=== PATIENT | male | born 1935 | race Caucasian/White ===

== ENCOUNTER 2017-03-29 18:41 | Inpatient (IN) | payer MEDICARE, OTHER ==
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
[2017-03-29 16:53] LABS: BASOPHILS 0.1 %; BASOPHILS ABSOLUTE 0.01 10/3/uL (0.0-0.16); EOSINOPHILS 0 %; HEMOGLOBIN 10.9 g/dL (13.6-17.8); IMMATURE GRANULOCYTES 0.3 %; IMMATURE GRANULOCYTES ABSOLUTE 0.05 10/3/uL (0.0-0.11); LYMPHOCYTES 6.2 %; MEAN CORPUS HGB CONC 33.4 g/dL (32.0-36.0); MEAN CORPUSCULAR HEMOGLOB 36.1 pg (26.0-34.0); MEAN PLATELET VOLUME 11.5 fL (9.2-13.0); MONOCYTES 7.3 %; MONOCYTES ABSOLUTE 1.41 10/3/uL (0.21-1.20); NEUTROPHILS 86.1 %; NEUTROPHILS ABSOLUTE 16.71 10/3/uL (2.02-8.40); RBC DISTRIBUTION WIDTH 13.9 % (12.0-16.0); RED CELL COUNT 3.02 10/6/uL (4.7-6.1)
[2017-03-29 16:55] LABS: ER CBC TAT 0 Hrs 05 Mins; HEMATOCRIT 32.6 % (40.0-51.0); MANUAL DIFF NO %; MEAN CORPUSCULAR VOLUME 107.9 fL (80-100); PLATELET COUNT 85 10/3/uL (150-400); WHITE BLOOD CELLS 19.4 10/3/uL (4.5-10.5)
[2017-03-29 17:01] LABS: INTERNATIONAL NORMAL RATI 1.3 UNITS (-)
[2017-03-29 17:02] LABS: PARTIAL THROMBO TIME 39.3 SEC (22.5-37.2)
[2017-03-29 17:09] LABS: A/G RATIO 1.2 (0.7-1.9); ALBUMIN 3.5 G/DL (3.5-5.0); ALKALINE PHOSPHATASE 76 U/L (45-117); CALCIUM, SERUM 8.9 MG/DL (8.5-10.4); CHLORIDE, SERUM 106 MMOL/L (96-112); CO2 (CARBON DIOXIDE) 26 MMOL/L (24-34); GLOBULIN 2.9 G/DL (2.5-4.1); GLUCOSE, SERUM 134 MG/DL (60-99); POTASSIUM, SERUM 4.6 MMOL/L (3.5-5.3); SGOT(AST) 26 U/L (5-40); SGPT(ALT) 18 U/L (5-65); SODIUM, SERUM 139 MMOL/L (135-148); TOTAL PROTEIN 6.4 G/DL (6.0-8.5)
[2017-03-29 17:10] LABS: BUN (BLOOD UREA NITROGEN) 25 MG/DL (6-23); CREATININE 1.88 MG/DL (0.70-1.30); GFR AFRICAN AMERICAN 38 ML/MIN (>=60); GFR NON AFRICAN AMERICAN 33 ML/MIN (>=60); TOTAL BILIRUBIN 1.2 MG/DL (0-1.2)
[2017-03-29 17:18] LABS: PROTIME (NOT ORD) 15.9 SEC (12.0-14.5)
[~2017-03-29 18:41] MED LIST: *UNABLE3; ASAB PO; B-12 PO; C5 PO; CELEXA20 PO; CYANO1000T PO; DARVN100 PO; FOLIC ACID400 MC1 PO; FOLIC PO; IMDUR30 PO; LEVOTHYROXIN50 MCG PO; LOP50 PO; MEVACOR40 MG PO; MOBIC15 MG PO; PREVAGEN PO; PRIN20 PO; PRIN5 PO; REG PO; TEAR OPH; TOPXL50 PO; VITAMIN B-121000 MC1 SL; ZANTAC 150 PO
[2017-03-29 19:05] LABS: CPK 429 U/L (0-200); MYOGLOBIN, SERUM 582 NG/ML (0-85)
[2017-03-30 00:20] LABS: RETICULOCYTE COUNT 1.8 % (0.5-2.5); RETICULOCYTE COUNT ABSOLUTE 52.2 10/3/uL (20.2-119.8)
[2017-03-30 01:06] LABS: PHOSPHORUS, SERUM 3.7 MG/DL (2.5-4.5); ULTRASENSITIVE TSH 3.43 MCIU/ML (0.358-3.740)
[2017-03-30 01:39] LABS: PROCALCITONIN 0.27 ng/mL (<0.5)
[2017-03-30 07:13] LABS: HEMATOCRIT 30.3 % (40.0-51.0); MEAN CORPUSCULAR HEMOGLOB 36.2 pg (26.0-34.0); MEAN CORPUSCULAR VOLUME 109.8 fL (80-100); MEAN PLATELET VOLUME 11.1 fL (9.2-13.0); PLATELET COUNT 67 10/3/uL (150-400); RBC DISTRIBUTION WIDTH 14.2 % (12.0-16.0); RED CELL COUNT 2.76 10/6/uL (4.7-6.1); WHITE BLOOD CELLS 15.1 10/3/uL (4.5-10.5)
[2017-03-30 07:31] LABS: ALBUMIN 3.1 G/DL (3.5-5.0); BUN (BLOOD UREA NITROGEN) 28 MG/DL (6-23); CALCIUM, SERUM 8.6 MG/DL (8.5-10.4); CHLORIDE, SERUM 106 MMOL/L (96-112); CO2 (CARBON DIOXIDE) 26 MMOL/L (24-34); CPK 456 U/L (0-200); CREATININE 1.61 MG/DL (0.70-1.30); GFR AFRICAN AMERICAN 45 ML/MIN (>=60); GFR NON AFRICAN AMERICAN 39 ML/MIN (>=60); PHOSPHORUS, SERUM 3.3 MG/DL (2.5-4.5); POTASSIUM, SERUM 4.4 MMOL/L (3.5-5.3); SODIUM, SERUM 140 MMOL/L (135-148); TROPONIN I 0.04 NG/ML (<0.05)
[2017-03-30 07:32] LABS: CK-MB 2.6 NG/ML; GLUCOSE, SERUM 101 MG/DL (60-99)
[2017-03-30 07:57] LABS: BAND NEUTROPHILS 1 %; EOSINOPHILS 3 %; EOSINOPHILS ABSOLUTE (CALC) 0.45 10/3/uL (0.0-0.53); LYMPHOCYTES 4 %; MONOCYTES 3 %; MONOCYTES ABSOLUTE (CALC) 0.45 10/3/uL (0.21-1.20); NEUTROPHILS ABSOLUTE (CALC) 13.59 10/3/uL (2.02-8.40); PLATELET ESTIMATE DEC (ADEQUATE); SEGMENTED NEUTROPHIL (0) 89 %; TOTAL NUCLEATED CELLS 100
[2017-03-31 06:24] LABS: BASOPHILS 0.1 %; BASOPHILS ABSOLUTE 0.01 10/3/uL (0.0-0.16); EOSINOPHILS 5.2 %; EOSINOPHILS ABSOLUTE 0.69 10/3/uL (0.0-0.53); HEMATOCRIT 29.2 % (40.0-51.0); HEMOGLOBIN 9.7 g/dL (13.6-17.8); IMMATURE GRANULOCYTES 0.2 %; IMMATURE GRANULOCYTES ABSOLUTE 0.03 10/3/uL (0.0-0.11); LYMPHOCYTES 7.9 %; LYMPHOCYTES ABSOLUTE 1.05 10/3/uL (0.67-4.30); MEAN CORPUS HGB CONC 33.2 g/dL (32.0-36.0); MEAN CORPUSCULAR HEMOGLOB 36.3 pg (26.0-34.0); MEAN CORPUSCULAR VOLUME 109.4 fL (80-100); MEAN PLATELET VOLUME 11.8 fL (9.2-13.0); MONOCYTES 10.6 %; MONOCYTES ABSOLUTE 1.41 10/3/uL (0.21-1.20); NEUTROPHILS ABSOLUTE 10.11 10/3/uL (2.02-8.40); PLATELET COUNT 71 10/3/uL (150-400); RED CELL COUNT 2.67 10/6/uL (4.7-6.1); WHITE BLOOD CELLS 13.3 10/3/uL (4.5-10.5)
[2017-03-31 06:25] LABS: MANUAL DIFF NO %
[2017-03-31 06:43] LABS: BUN (BLOOD UREA NITROGEN) 31 MG/DL (6-23); CALCIUM, SERUM 8.6 MG/DL (8.5-10.4); CHLORIDE, SERUM 106 MMOL/L (96-112); CO2 (CARBON DIOXIDE) 26 MMOL/L (24-34); CREATININE 1.37 MG/DL (0.70-1.30); GFR AFRICAN AMERICAN 55 ML/MIN (>=60); GFR NON AFRICAN AMERICAN 48 ML/MIN (>=60); GLUCOSE, SERUM 97 MG/DL (60-99); POTASSIUM, SERUM 4.4 MMOL/L (3.5-5.3); SODIUM, SERUM 138 MMOL/L (135-148)
[2017-03-31 06:44] LABS: PLATELET ESTIMATE DEC (ADEQUATE)
[2017-03-31 06:45] LABS: POLYCHROMASIA 1+ (2-5/OIF) (0-1/OIF)
[2017-03-31 19:49] LABS: ASCORBIC ACID (UR NOT ORDER) NEG (NEG); BILIRUBIN, URINE NEGATIVE (NEG); KETONE, URINE NEGATIVE (NEG); LEUKOCYTE ESTERASE(NOT OR MOD (NEG); WBC (NOT ORDERED) (RFLEX) 20 (0-5)
[2017-04-01 06:06] LABS: BASOPHILS 0.2 %; BASOPHILS ABSOLUTE 0.02 10/3/uL (0.0-0.16); EOSINOPHILS 2.8 %; EOSINOPHILS ABSOLUTE 0.34 10/3/uL (0.0-0.53); HEMATOCRIT 27.3 % (40.0-51.0); HEMOGLOBIN 9.3 g/dL (13.6-17.8); IMMATURE GRANULOCYTES 0.5 %; IMMATURE GRANULOCYTES ABSOLUTE 0.06 10/3/uL (0.0-0.11); LYMPHOCYTES 11.5 %; LYMPHOCYTES ABSOLUTE 1.39 10/3/uL (0.67-4.30); MEAN CORPUS HGB CONC 34.1 g/dL (32.0-36.0); MEAN CORPUSCULAR HEMOGLOB 36.6 pg (26.0-34.0); MEAN CORPUSCULAR VOLUME 107.5 fL (80-100); MEAN PLATELET VOLUME 11.3 fL (9.2-13.0); MONOCYTES 11.7 %; MONOCYTES ABSOLUTE 1.42 10/3/uL (0.21-1.20); NEUTROPHILS 73.3 %; PLATELET COUNT 59 10/3/uL (150-400); RBC DISTRIBUTION WIDTH 13.9 % (12.0-16.0); RED CELL COUNT 2.54 10/6/uL (4.7-6.1); WHITE BLOOD CELLS 12.1 10/3/uL (4.5-10.5)
[2017-04-01 06:08] LABS: MANUAL DIFF NO %
[2017-04-01 06:11] LABS: BUN (BLOOD UREA NITROGEN) 33 MG/DL (6-23); CALCIUM, SERUM 8.7 MG/DL (8.5-10.4); CHLORIDE, SERUM 108 MMOL/L (96-112); CO2 (CARBON DIOXIDE) 21 MMOL/L (24-34); CREATININE 1.33 MG/DL (0.70-1.30); GFR AFRICAN AMERICAN 57 ML/MIN (>=60); GFR NON AFRICAN AMERICAN 49 ML/MIN (>=60); GLUCOSE, SERUM 99 MG/DL (60-99); POTASSIUM, SERUM 4.6 MMOL/L (3.5-5.3); SODIUM, SERUM 137 MMOL/L (135-148)
[2017-04-01 07:44] LABS: LYMPHOCYTES 15 %; LYMPHOCYTES ABSOLUTE (CALC) 1.82 10/3/uL (0.67-4.30); MONOCYTES 10 %; MONOCYTES ABSOLUTE (CALC) 1.21 10/3/uL (0.21-1.20); NEUTROPHILS ABSOLUTE (CALC) 9.08 10/3/uL (2.02-8.40); PLATELET ESTIMATE DEC (ADEQUATE); SEGMENTED NEUTROPHIL (0) 75 %; TOTAL NUCLEATED CELLS 100
[2017-04-01 07:46] LABS: ACANTHOCYTES OCC (0-2/OIF); TARGET CELLS OCC (1-2/OIF) (0-1/OIF)
[2017-04-02 06:52] LABS: HEMATOCRIT 28.3 % (40.0-51.0); HEMOGLOBIN 9.4 g/dL (13.6-17.8); MEAN CORPUS HGB CONC 33.2 g/dL (32.0-36.0); MEAN CORPUSCULAR HEMOGLOB 36.3 pg (26.0-34.0); MEAN CORPUSCULAR VOLUME 109.3 fL (80-100); MEAN PLATELET VOLUME 11.5 fL (9.2-13.0); RBC DISTRIBUTION WIDTH 13.8 % (12.0-16.0); RED CELL COUNT 2.59 10/6/uL (4.7-6.1); WHITE BLOOD CELLS 10.6 10/3/uL (4.5-10.5)
[2017-04-02 06:56] LABS: MANUAL DIFF YES %; PLATELET COUNT 96 10/3/uL (150-400)
[2017-04-02 07:50] LABS: ACANTHOCYTES OCC (0-2/OIF); BAND NEUTROPHILS 2 %; BURR CELLS 1+ (3-10/OIF) (0-2/OIF); EOSINOPHILS 6 %; EOSINOPHILS ABSOLUTE (CALC) 0.64 10/3/uL (0.0-0.53); IMMATURE GRANS ABSOLUTE (CALC) 0.11 10/3/uL (0.0-0.11); LYMPHOCYTES 11 %; LYMPHOCYTES ABSOLUTE (CALC) 1.17 10/3/uL (0.67-4.30); METAMYELOCYTES 1 %; MONOCYTES 3 %; MONOCYTES ABSOLUTE (CALC) 0.32 10/3/uL (0.21-1.20); NEUTROPHILS ABSOLUTE (CALC) 8.37 10/3/uL (2.02-8.40); PLATELET ESTIMATE DEC (ADEQUATE); POIKILOCYTOSIS 1+ (5-10/OIF) (0-5/OIF); SEGMENTED NEUTROPHIL (0) 77 %; TOTAL NUCLEATED CELLS 100
[2017-04-03 06:42] LABS: BUN (BLOOD UREA NITROGEN) 30 MG/DL (6-23); CALCIUM, SERUM 8.7 MG/DL (8.5-10.4); CHLORIDE, SERUM 105 MMOL/L (96-112); CO2 (CARBON DIOXIDE) 24 MMOL/L (24-34); CREATININE 1.31 MG/DL (0.70-1.30); GFR AFRICAN AMERICAN 58 ML/MIN (>=60); GFR NON AFRICAN AMERICAN 50 ML/MIN (>=60); GLUCOSE, SERUM 100 MG/DL (60-99); POTASSIUM, SERUM 4.3 MMOL/L (3.5-5.3); SODIUM, SERUM 138 MMOL/L (135-148)
[2017-04-04 18:39] LABS: BASOPHILS 0.1 %; BASOPHILS ABSOLUTE 0.01 10/3/uL (0.0-0.16); EOSINOPHILS 4.5 %; EOSINOPHILS ABSOLUTE 0.46 10/3/uL (0.0-0.53); HEMATOCRIT 30.6 % (40.0-51.0); HEMOGLOBIN 10.2 g/dL (13.6-17.8); IMMATURE GRANULOCYTES 0.4 %; IMMATURE GRANULOCYTES ABSOLUTE 0.04 10/3/uL (0.0-0.11); LYMPHOCYTES 14.2 %; LYMPHOCYTES ABSOLUTE 1.46 10/3/uL (0.67-4.30); MANUAL DIFF NO %; MEAN CORPUS HGB CONC 33.3 g/dL (32.0-36.0); MEAN CORPUSCULAR HEMOGLOB 36.4 pg (26.0-34.0); MEAN CORPUSCULAR VOLUME 109.3 fL (80-100); MEAN PLATELET VOLUME 10.4 fL (9.2-13.0); MONOCYTES ABSOLUTE 1.34 10/3/uL (0.21-1.20); NEUTROPHILS 67.8 %; NEUTROPHILS ABSOLUTE 6.98 10/3/uL (2.02-8.40); NUCLEATED RED BLOOD CELLS 0.8 /100WBC (0-0); PLATELET COUNT 172 10/3/uL (150-400); RBC DISTRIBUTION WIDTH 14.2 % (12.0-16.0); WHITE BLOOD CELLS 10.3 10/3/uL (4.5-10.5)
== END 2017-04-06 14:40 | DRG 559 ==
LOC: ER 18:41 → 4SO 20:26
PROVIDERS: Internal Medicine; Nurse Practitioner; Nurse Practitioner Family
DX: M97.02XA Periprosthetic fracture around internal prosthetic left hip joint, initial encounter (principal); G93.41 Metabolic encephalopathy; N17.9 Acute kidney failure, unspecified; N39.0 Urinary tract infection, site not specified; F03.90 Unspecified dementia, unspecified severity, without behavioral disturbance, psychotic disturbance, mood disturbance, and anxiety; D69.6 Thrombocytopenia, unspecified; Z95.1 Presence of aortocoronary bypass graft; I25.10 Atherosclerotic heart disease of native coronary artery without angina pectoris; Z95.5 Presence of coronary angioplasty implant and graft; Z85.46 Personal history of malignant neoplasm of prostate; K21.9 Gastro-esophageal reflux disease without esophagitis; Z95.0 Presence of cardiac pacemaker; Z90.81 Acquired absence of spleen; E03.9 Hypothyroidism, unspecified; Z95.2 Presence of prosthetic heart valve; Z96.642 Presence of left artificial hip joint; N18.2 Chronic kidney disease, stage 2 (mild); M19.90 Unspecified osteoarthritis, unspecified site; M81.0 Age-related osteoporosis without current pathological fracture; I12.9 Hypertensive chronic kidney disease with stage 1 through stage 4 chronic kidney disease, or unspecified chronic kidney disease; E78.2 Mixed hyperlipidemia; R73.9 Hyperglycemia, unspecified; V89.2XXA Person injured in unspecified motor-vehicle accident, traffic, initial encounter; W22.10XA Striking against or struck by unspecified automobile airbag, initial encounter; B96.20 Unspecified Escherichia coli [E. coli] as the cause of diseases classified elsewhere; D64.9 Anemia, unspecified; N13.9 Obstructive and reflux uropathy, unspecified
CPT/HCPCS: 70450; 71010; 72170; 73502-LT; 73560-LT; 73700-LT; 74176; 80048; 80053; 80069; 81001; 82550; 82553; 82607; 82728; 82746; 82962; 83540; 83550; 83735; 83874; 84100; 84145; 84443; 84484; 85007; 85025; 85027; 85045; 85610; 85730; 87077; 87086; 87186; 96374; 97110-GO; 97110-GP; 97161-GP; 97166-GO; 97530-GP; 97535-GO; 99285; A9270-GY; G8978-CL-GP; G8979-CK-GP; G8987-CK-GO; G8988-CJ-GO; J2405; J3486